=== PATIENT | female | born 1950 | race Caucasian/White ===

== ENCOUNTER 2016-09-08 10:43 | Emergency (ER) | payer OTHER ==
[~2016-09-08] VITALS: Ht 170.2 cm; Wt 69.6 kg
[~2016-09-08 10:43] MED LIST: ACETAMINOPHEN500 MG PO; ACTOS45 MG PO; ADVAIR 250/501 DISK IH; ASPIR-LOW81 MG PO; ASPIRIN EC325 MG PO; ASPIRIN325 MG PO; ATORVASTATIN CA40 MG PO; ATROVENT H200 INHALA IH; Advair 250/50 Diskus IH; Anusol HC,Proctozone PR; Aspirin PO; BACTRIM,SEPT1 TABLET PO; CARAFATE1 GM PO; CILOSTAZOL100 MG PO; CIPRO500 MG PO; CLARITIN10 M3 PO; COZAAR50 MG PO; CRESTOR20 MG PO; CYANOCOBAL1000 MCG/2 IM; CYANOCOBALAM1000 MCG PO; CYANOCOBALAMIN IM; CYMBALTA60 MG PO; Claritin,Alavart PO; Cymbalta PO; DEPAKOTE ER500 MG PO; DEPAKOTE500 MG PO; DONNATAL1 TABLET PO; ERYTHROMYCIN O3.5 GM BOTH EYES; FISH OIL 1,0001 EAC7 PO; FISH OIL CONC1 EACH PO; FLEXERIL10 MG PO; FLONASE16 G1 BOTH NARES; Flexeril PO; Flonase BOTH NARES; GABAPENTIN300 MG PO; GLUCOTROL10 MG PO; Garlic PO; Glucotrol PO; HUMALOG100 UNIT/2 SC; HYDROCODON-ACE1 EAC7 PO; IMODIUM MS REL1 EACH PO; K-Dur PO; LANTUS 10100 UNITS/ SC; LEVAQUIN PO; LEVOTHYROXINE112 MCG PO; LIDODERM 5% P1 PATCH TD; LIPITOR40 MG PO; LISINOPRIL10 MG PO; LORATADINE10 M2 PO; LOSARTAN POTASS50 MG PO; MELATONIN10 M1 PO; MELATONIN10 M2 PO; METOPROLOL SUCC25 MG PO; MOBIC15 MG PO; MONTELUKAST SOD10 MG PO; NAPROSYN-EC 37375 MG PO; NEURONTIN300 MG PO; NIFEREX-150,FE150 MG PO; NOVOLOG 10100 UNITS/ SC; NOVOLOG 10100 UNITS/ SQ; Neutra-Phos,Phos-Nak PO; OMEGA 3-6-91200 MG PO; OMEPRAZOLE20 MG PO; OPTIVAR 0.120 DROP/6 BOTH EYES; PRILOSEC20 MG PO; PRILOSEC40 MG PO; PROAIR HFA8.5 GM IH; Phoslo PO; Proair HFA IH; RANITIDINE HCL150 M1 PO; RANITIDINE HCL150 MG PO; Reglan PO; SINGULAIR10 MG PO; SPIRIVA1 INHALATI IH; SUCRALFATE1 GM PO; SYNTHROID112 MCG PO; TEMOVATE 0.05%30 GM TP; TOPROL XL25 MG PO; TRAMADOL HCL50 MG PO; TRICOR145 MG PO; TYLENOL WITH C1 EACH PO; Temovate 0.05% Cream TP; Toprol XL PO; ULTRAM50 MG PO; VAGIFEM10 MCG VG; VITAMIN B-1000 MCG/1 PO; VITAMIN D-32000 UNI1 PO; VITAMIN D3400 UNI2 PO; VITAMIN D400 UNIT PO; Vitamin B-12 IM; Vitamin D PO; Xalatan 0.005% Ophth BOTH EYES; ZANTAC150 MG PO; ZESTRIL10 MG PO; ZOFRAN4 MG PO; Zantac PO
[2016-09-08 11:42] LABS: HEMATOCRIT 37.5 % (36.0-46.0); MCH 31.3 PG (29.0-34.0); MCHC 35.5 G/DL (30.0-36.0); MCV 88.2 FL (83-99); MEAN PLAT.VOLUME 10.3 uM^3 (9.5-12.4); PLATELET COUNT 243 K/uL (156-360); RBC DIS.WIDTH-CV 11.9 % (11.8-14.6); RBC DIS.WIDTH-SD 37.9 % (39-53); RED BLOOD COUNT 4.25 M/uL (3.80-5.20); WHITE BLOOD COUNT 9.8 K/uL (4.1-10.2)
[2016-09-08 12:22] LABS: CHLORIDE 105 mEq/L (99-109); POTASSIUM 3.3 mEq/L (3.7-5.4); SODIUM 140 mEq/L (136-147)
[2016-09-08 12:24] LABS: GLUCOSE 140 mg/dL (70-99)
[2016-09-08 12:25] LABS: ADD MIUA? YES; BILIRUBIN NEGATIVE; BLOOD SMALL; COLOR YELLOW ((YELLOW)); GLUCOSE (STRIP) NEGATIVE; KETONES NEGATIVE; LEUKOCYTES NEGATIVE; NITRITE NEGATIVE; PH, URINE 7.5 (5-8); PROTEIN (STRIP) >=300; SPECIFIC GRAVITY 1.016 (1.000-1.030); UROBILINOGEN 0.2 MG/DL (0.2-1.0)
[2016-09-08 12:25] LABS: ANION GAP 16 MEQ/L (2-14)
[2016-09-08 12:28] LABS: GFR ESTIMATE (CALCULATED) 48 mL/min/; UREA NITROGEN (BUN) 14 mg/dL (9-23)
[2016-09-08 12:47] LABS: RED BLOOD CELLS RARE /HPF (0-5); WHITE BLOOD CELLS NONE SEEN /HPF (0-5)
[2016-09-08 12:48] LABS: BACTERIA NONE SEEN; CASTS NONE SEEN /LPF; CRYSTALS NONE SEEN; EPITHELIAL CELLS RARE; MUCUS NONE SEEN; UCUL ADDED? NO
[2016-09-08 13:46] VITALS: BP 198/80
== END 2016-09-08 13:48 | disposition home or self-care (01) ==
LOC: EME 10:43
PROVIDERS: Emergency Medicine
DX: R51 Headache (principal); J43.9 Emphysema, unspecified; J44.9 Chronic obstructive pulmonary disease, unspecified; I10 Essential (primary) hypertension; E78.5 Hyperlipidemia, unspecified; N18.4 Chronic kidney disease, stage 4 (severe); E11.9 Type 2 diabetes mellitus without complications; Z99.2 Dependence on renal dialysis; Z79.4 Long term (current) use of insulin; Z79.82 Long term (current) use of aspirin; Z79.01 Long term (current) use of anticoagulants; Z98.84 Bariatric surgery status; Z87.891 Personal history of nicotine dependence; Z91.013 Allergy to seafood; Z91.040 Latex allergy status; Z88.8 Allergy status to other drugs, medicaments and biological substances; Z88.3 Allergy status to other anti-infective agents; Z91.041 Radiographic dye allergy status
CPT/HCPCS: 80048; 81003; 85027; 99281; 99284; J1100; J1200; J1885; J2765; J7030

== ENCOUNTER 2016-11-21 10:32 | Emergency (ER) | payer OTHER ==
[~2016-11-21] VITALS: Ht 170.2 cm; Wt 68.1 kg
[2016-11-21 11:39] LABS: BASOPHIL COUNT 0.1 K/uL (0-0.1); EOSINOPHIL COUNT 0.1 K/uL (0-0.3); IMMATURE GRANULOCYTE (%) 0.4 % (0.0-0.7); IMMATURE GRANULOCYTE COUNT 0.1 K/uL; INSTRUMENT ABS NEUTROPHIL CT 9.5 K/uL; LYMPHOCYTE COUNT 1.5 K/uL (1.0-2.8); MCH 30.5 PG (29.0-34.0); MCHC 33.6 G/DL (30.0-36.0); MCV 90.9 FL (83-99); MEAN PLAT.VOLUME 10.4 uM^3 (9.5-12.4); MONOCYTE (%) 6.8 % (3-12); MONOCYTE COUNT 0.8 K/uL (0-0.8); NEUTROPHIL (%) 78.9 % (45-76); NEUTROPHIL COUNT 9.5 K/uL (1.8-6.4); PLATELET COUNT 285 K/uL (156-360); RBC DIS.WIDTH-CV 11.8 % (11.8-14.6); RBC DIS.WIDTH-SD 38.6 % (39-53); RED BLOOD COUNT 4.29 M/uL (3.80-5.20); WHITE BLOOD COUNT 12.1 K/uL (4.1-10.2)
[2016-11-21 12:02] LABS: TROP-I INTERPRETATION NEGATIVE; TROPONIN-I < 0.01 ng/mL (0.0-0.30)
[2016-11-21 12:08] LABS: CHLORIDE 102 mEq/L (99-109); SODIUM 139 mEq/L (136-147)
[2016-11-21 12:10] LABS: GLUCOSE 180 mg/dL (70-99)
[2016-11-21 12:11] LABS: ANION GAP 10 MEQ/L (2-14)
[2016-11-21 12:12] LABS: TOTAL BILIRUBIN 0.7 mg/dL (0.0-1.0)
[2016-11-21 12:13] LABS: ALKALINE PHOSPHATASE 75 IU/L (3-129); SERUM ETHYL ALCOHOL < 10 mg/dL
[2016-11-21 12:14] LABS: GFR ESTIMATE (CALCULATED) 43 mL/min/
[2016-11-21 12:15] LABS: UREA NITROGEN (BUN) 16 mg/dL (9-23)
[2016-11-21 12:17] LABS: LIPASE 33 U/L (1.0-51.0)
[2016-11-21 14:42] LABS: ADD MIUA? YES; BILIRUBIN NEGATIVE; BLOOD NEGATIVE; COLOR STRAW ((YELLOW)); GLUCOSE (STRIP) 50; KETONES NEGATIVE; LEUKOCYTES NEGATIVE; NITRITE NEGATIVE; PROTEIN (STRIP) 100; UROBILINOGEN 0.2 MG/DL (0.2-1.0)
[2016-11-21 14:46] LABS: BACTERIA NONE SEEN /HPF; EPITHELIAL CELLS NONE SEEN /HPF; MUCUS NONE SEEN /LPF; RED BLOOD CELLS 0-5 /HPF (0-5); WHITE BLOOD CELLS 0-5 /HPF (0-5)
[2016-11-21] MEDS ORDERED: CARAFATE1 GM PO (15:27)
[2016-11-21] MEDS ORDERED: PRILOSEC OTC20 MG PO (15:27)
[2016-11-21 16:48] VITALS: BP 171/80
== END 2016-11-21 16:53 | disposition home or self-care (01) ==
LOC: EME 10:32
PROVIDERS: Emergency Medicine
DX: R00.2 Palpitations (principal); E03.9 Hypothyroidism, unspecified; R10.13 Epigastric pain; I25.10 Atherosclerotic heart disease of native coronary artery without angina pectoris; I10 Essential (primary) hypertension; E11.9 Type 2 diabetes mellitus without complications; J45.909 Unspecified asthma, uncomplicated; J44.9 Chronic obstructive pulmonary disease, unspecified; Z86.73 Personal history of transient ischemic attack (TIA), and cerebral infarction without residual deficits; N18.4 Chronic kidney disease, stage 4 (severe); K21.9 Gastro-esophageal reflux disease without esophagitis; Z79.82 Long term (current) use of aspirin; Z79.4 Long term (current) use of insulin; Z87.891 Personal history of nicotine dependence
CPT/HCPCS: 74176; 80053; 81003; 83605; 83690; 84443; 84484; 85025; 93005; 99281; 99285; G0480; J2270; J2405; J7030; S0028

== ENCOUNTER 2017-02-09 08:16 | Emergency (ER) | payer OTHER ==
[~2017-02-09] VITALS: Ht 170.2 cm; Wt 68.5 kg
[~2017-02-09 08:16] MED LIST changes: +PRILOSEC OTC20 MG PO
[2017-02-09 08:50] LABS: POINT-OF-CARE METER ID UU14100415
[2017-02-09 09:25] LABS: BASOPHIL COUNT 0.1 K/uL (0-0.1); EOSINOPHIL (%) 1.9 % (0-5); EOSINOPHIL COUNT 0.2 K/uL (0-0.3); HEMATOCRIT 37.7 % (36.0-46.0); IMMATURE GRANULOCYTE (%) 0.3 % (0.0-0.7); INSTRUMENT ABS NEUTROPHIL CT 9.7 K/uL; LYMPHOCYTE COUNT 1.3 K/uL (1.0-2.8); MCH 30.4 PG (29.0-34.0); MCHC 33.4 G/DL (30.0-36.0); MCV 90.8 FL (83-99); MEAN PLAT.VOLUME 10.4 uM^3 (9.5-12.4); MONOCYTE (%) 6.7 % (3-12); MONOCYTE COUNT 0.8 K/uL (0-0.8); NEUTROPHIL (%) 79.4 % (45-76); NEUTROPHIL COUNT 9.7 K/uL (1.8-6.4); PLATELET COUNT 268 K/uL (156-360); RBC DIS.WIDTH-CV 11.8 % (11.8-14.6); RED BLOOD COUNT 4.15 M/uL (3.80-5.20); WHITE BLOOD COUNT 12.2 K/uL (4.1-10.2)
[2017-02-09 09:36] LABS: CHLORIDE 105 mEq/L (99-109); POTASSIUM 4.1 mEq/L (3.7-5.4); SODIUM 140 mEq/L (136-147)
[2017-02-09 09:38] LABS: GLUCOSE 88 mg/dL (70-99)
[2017-02-09 09:39] LABS: ANION GAP 11 MEQ/L (2-14)
[2017-02-09 09:40] LABS: TOTAL BILIRUBIN 0.6 mg/dL (0.0-1.0)
[2017-02-09 09:42] LABS: ALKALINE PHOSPHATASE 63 IU/L (3-129); GFR ESTIMATE (CALCULATED) 48 mL/min/
[2017-02-09 09:43] LABS: UREA NITROGEN (BUN) 24 mg/dL (9-23)
[2017-02-09 09:45] LABS: LIPASE 27 U/L (1.0-51.0)
[2017-02-09 10:22] LABS: ADD MIUA? YES; BILIRUBIN NEGATIVE; BLOOD SMALL; COLOR STRAW ((YELLOW)); GLUCOSE (STRIP) NEGATIVE; KETONES NEGATIVE; LEUKOCYTES TRACE; NITRITE NEGATIVE; PROTEIN (STRIP) 100; SPECIFIC GRAVITY 1.008 (1.000-1.030); UROBILINOGEN 0.2 MG/DL (0.2-1.0)
[2017-02-09 10:26] LABS: BACTERIA RARE /HPF; EPITHELIAL CELLS NONE SEEN /HPF; MUCUS NONE SEEN /LPF; UCUL ADDED? NO; WHITE BLOOD CELLS 15-20 /HPF (0-5)
[2017-02-09] MEDS ORDERED: CIPRO500 MG PO (13:12)
[2017-02-09] MEDS ORDERED: NORCO 5/3251 TABLET PO (13:16)
[2017-02-09 13:46] VITALS: BP 188/73
== END 2017-02-09 13:50 | disposition home or self-care (01) ==
LOC: EME 08:16
PROVIDERS: Emergency Medicine
DX: N30.90 Cystitis, unspecified without hematuria (principal); K21.9 Gastro-esophageal reflux disease without esophagitis; I11.0 Hypertensive heart disease with heart failure; I50.9 Heart failure, unspecified; E78.5 Hyperlipidemia, unspecified; J44.9 Chronic obstructive pulmonary disease, unspecified; E11.9 Type 2 diabetes mellitus without complications; Z79.4 Long term (current) use of insulin; F32.9 Major depressive disorder, single episode, unspecified; G40.909 Epilepsy, unspecified, not intractable, without status epilepticus; Z91.013 Allergy to seafood; Z87.442 Personal history of urinary calculi; Z86.73 Personal history of transient ischemic attack (TIA), and cerebral infarction without residual deficits; Z91.040 Latex allergy status; Z88.0 Allergy status to penicillin; Z87.891 Personal history of nicotine dependence
CPT/HCPCS: 74176; 80053; 81003; 82948; 83690; 85025; 87077; 87086; 87186; 99281; 99285; J0744; J2405; J3010; J7040

== ENCOUNTER 2017-07-19 15:58 | Emergency (ER) | payer OTHER ==
[~2017-07-19] VITALS: Ht 170.2 cm; Wt 67.9 kg
[~2017-07-19 15:58] MED LIST changes: +NORCO 5/3251 TABLET PO
[2017-07-19 16:16] LABS: POINT-OF-CARE METER ID UU13113778
[2017-07-19 16:32] LABS: HEMATOCRIT 35.7 % (36.0-46.0); MCH 30.7 PG (29.0-34.0); MCHC 33.3 G/DL (30.0-36.0); MEAN PLAT.VOLUME 10.2 uM^3 (9.5-12.4); PLATELET COUNT 278 K/uL (156-360); RBC DIS.WIDTH-CV 11.4 % (11.8-14.6); RBC DIS.WIDTH-SD 38.4 % (39-53); RED BLOOD COUNT 3.88 M/uL (3.80-5.20); WHITE BLOOD COUNT 8.9 K/uL (4.1-10.2)
[2017-07-19 16:41] LABS: CHLORIDE 101 mEq/L (99-109); SODIUM 141 mEq/L (136-147)
[2017-07-19 16:44] LABS: ANION GAP 12 MEQ/L (2-14)
[2017-07-19 16:45] LABS: TOTAL BILIRUBIN 0.3 mg/dL (0.0-1.0)
[2017-07-19 16:46] LABS: ALKALINE PHOSPHATASE 91 IU/L (3-129)
[2017-07-19 16:47] LABS: GFR ESTIMATE (CALCULATED) 48 mL/min/
[2017-07-19 16:48] LABS: UREA NITROGEN (BUN) 16 mg/dL (9-23)
[2017-07-19 16:50] LABS: GLUCOSE 82 mg/dL (70-99); POTASSIUM 3.8 mEq/L (3.7-5.4)
[2017-07-19 17:03] LABS: POINT-OF-CARE METER ID UU13113702
[2017-07-19 18:32] LABS: ADD MIUA? YES; BILIRUBIN NEGATIVE; BLOOD NEGATIVE; COLOR STRAW ((YELLOW)); GLUCOSE (STRIP) >=500; KETONES NEGATIVE; LEUKOCYTES SMALL; NITRITE NEGATIVE; PROTEIN (STRIP) 30; SPECIFIC GRAVITY 1.007 (1.000-1.030); UROBILINOGEN 0.2 MG/DL (0.2-1.0)
[2017-07-19 18:38] LABS: BACTERIA RARE /HPF; EPITHELIAL CELLS RARE /HPF; MUCUS TRACE /LPF; RED BLOOD CELLS 0-5 /HPF (0-5); UCUL ADDED? YES
[2017-07-19] MEDS ORDERED: BACTRIM,SEPT1 TABLET PO (19:54)
[2017-07-19 20:02] VITALS: BP 139/65
== END 2017-07-19 20:03 | disposition home or self-care (01) ==
LOC: EME 15:58
DX: N39.0 Urinary tract infection, site not specified (principal); E11.65 Type 2 diabetes mellitus with hyperglycemia; I13.0 Hypertensive heart and chronic kidney disease with heart failure and stage 1 through stage 4 chronic kidney disease, or unspecified chronic kidney disease; E11.22 Type 2 diabetes mellitus with diabetic chronic kidney disease; I50.9 Heart failure, unspecified; N18.4 Chronic kidney disease, stage 4 (severe); Z79.4 Long term (current) use of insulin; Z99.2 Dependence on renal dialysis; E78.5 Hyperlipidemia, unspecified; J44.9 Chronic obstructive pulmonary disease, unspecified; K21.9 Gastro-esophageal reflux disease without esophagitis; Z86.73 Personal history of transient ischemic attack (TIA), and cerebral infarction without residual deficits; Z98.84 Bariatric surgery status; R56.9 Unspecified convulsions; F32.9 Major depressive disorder, single episode, unspecified; Z88.0 Allergy status to penicillin; Z87.891 Personal history of nicotine dependence; Z88.8 Allergy status to other drugs, medicaments and biological substances; Z87.442 Personal history of urinary calculi
CPT/HCPCS: 71020; 80053; 81003; 82948; 85027; 87086 GA; 99281; 99284